=== PATIENT | male | born 1965 | race Caucasian/White ===

== ENCOUNTER → 2019-02-23 | Outpatient (CLI) | payer BC ==
--- NOTE | 2019-02-23 10:45 | Diagnostic Imaging Report ---
EXAM: US ABDOMEN COMPLETE DATE: 02/23/2019 9:39 AM INDICATION: Renal cyst, gallstone COMPARISON: 10/26/2014 FINDINGS: The visualized pancreas is unremarkable. The liver is normal in size measuring 15.7 cm in length. Hepatic echogenicity is within normal limits. No focal hepatic abnormality is identified. The main portal vein is patent with antegrade flow and diameter of 1.0 cm, within normal limits. The gallbladder is unremarkable. There is no evidence for cholelithiasis, gallbladder wall thickening, or pericholecystic fluid. There is no intra or extra hepatic biliary ductal dilatation. The common bile duct measures 2 mm. Sonographic Shukla's sign is negative. The spleen is normal in size measuring 10.7 cm in length and demonstrates an unremarkable sonographic appearance. The kidneys are normal in size measuring 11.3 centers in length on the right and 10.9 cm in length on the left. Cortical thickness and echogenicity are within normal limits. There is no evidence for solid renal mass, hydronephrosis, or shadowing calculi. The previously identified left renal cyst is not visualized/appreciated on today's examination. The visual as portions the IVC and aorta are within normal limits. There is no ascites present. IMPRESSION: Unremarkable abdominal ultrasound examination. No sonographic evidence for cholelithiasis. Previously visualized left renal cyst is not visualized on today's examination. Signed by: Dr. Anatoly Flores MD on 02/23/2019 10:41 AM
== END ==
LOC: US 09:31
PROVIDERS: ATTEND Family Medicine
DX: N28.1 Cyst of kidney, acquired (principal); K80.80 Other cholelithiasis without obstruction
CPT/HCPCS: 76700

== ENCOUNTER → 2020-03-15 | Outpatient (CLI) | payer BC | LOC: RAD 15:24 | PROVIDERS: ATTEND Family Medicine | DX: R05 Cough (principal) | CPT/HCPCS: 71046 ==